=== PATIENT | male | born 1980 | race Caucasian/White ===

== ENCOUNTER 2017-12-16 05:30 | Emergency (ER) | END 2017-12-16 08:28 | disposition home or self-care (01) ==

== ENCOUNTER 2018-05-09 13:16 | Inpatient (IN) | payer OTHER ==
[~2018-05-09] VITALS: Ht 172.7 cm; Wt 79.5 kg
[~2018-05-09 13:16] MED LIST: FLUO40CA10 PO
[2018-05-09 17:29] VITALS: BP 133/86; PULSE 77; RESP 18
[2018-05-09 17:57] VITALS: Ht 172.7 cm; Wt 79.5 kg
[2018-05-09] MEDS ORDERED: ONDANSETRON 4 MG INJ IV PRN (18:30)
[2018-05-09] MEDS ORDERED: morphine SULFATE/PF (2 MG/2 ML) SYG IV PRN (18:30)
[2018-05-09] MEDS ORDERED: DOCUSATE SODIUM 100 MG CAP PO PRN (18:30)
[2018-05-09] MEDS ORDERED: ZOLPIDEM 5 MG TAB PO PRN (18:30)
[2018-05-09] MEDS ORDERED: MAGNESIUM HYDROXIDE 30ML CUP PO PRN (18:30)
[2018-05-09] MEDS ORDERED: ACETAMINOPHEN 325 MG TAB PO PRN (18:30)
[2018-05-09] MEDS ORDERED: NACL 0.9% 3 ML SYG IV SCH (18:30)
[2018-05-09] MEDS: HYDROCODONE/APAP (5/325) TAB PO PRN (18:40)
[2018-05-09] MEDS: AMPICILLIN/SULB 3 GM/NS (PMX) 100 ML IVPB SCH (19:33)
[2018-05-09 20:13] VITALS: BP 127/79; PULSE 82; RESP 18
[2018-05-09] MEDS: morphine 4 MG/ML VIAL IV PRN (21:20)
[2018-05-10] MEDS: AMPICILLIN/SULB 3 GM/NS (PMX) 100 ML IVPB SCH ×5 (00:46→23:43)
[2018-05-10] MEDS: HYDROCODONE/APAP (5/325) TAB PO PRN ×3 (00:46→14:49)
[2018-05-10] MEDS: morphine 4 MG/ML VIAL IV PRN ×3 (02:19→20:48)
[2018-05-10 02:46] VITALS: BP 144/93; PULSE 67; RESP 18
[2018-05-10 07:00] VITALS: BP 136/86; PULSE 57; RESP 18
--- NOTE | 2018-05-10 08:46 | HP ---
Date/Time of Note Date/Time of Note DATE: 05/09/18 TIME: 23:00 Assessment/Plan VTE Prophylaxis Risk score (from Nsg)>0 risk: 0 SCD applied (from Nsg): Yes Pharmacological prophylaxis: LMWH Lines/Catheters IV Catheter Type (from Nrsg): Saline Lock Assessment/Plan Assessment/Plan 1. Right facial/mandibular abscess: Secondary to tooth infection -IV antibiotic -Pain management 2. Depression: Continue Prozac Result Diagram: 05/10/1842205/10/18 0423 Results 24hrs Laboratory Tests Test 05/10/18 04:23 White Blood Count 8.0 Red Blood Count 3.91 L Hemoglobin 12.0 L Hematocrit 35.7 L Mean Corpuscular Volume 91.3 Mean Corpuscular Hemoglobin 30.7 Mean Corpuscular Hemoglobin Concent 33.6 Red Cell Distribution Width 13.2 Platelet Count 156 Mean Platelet Volume 10.7 H Immature Granulocytes % 0.300 Neutrophils % 57.0 Lymphocytes % 30.9 Monocytes % 9.9 Eosinophils % 1.5 Basophils % 0.4 Nucleated Red Blood Cells % 0.0 Immature Granulocytes # 0.020 Neutrophils # 4.6 Lymphocytes # 2.5 Monocytes # 0.8 Eosinophils # 0.1 Basophils # 0.0 Nucleated Red Blood Cells # 0.0 Sodium Level 138 Potassium Level 4.2 Chloride Level 103 Carbon Dioxide Level 28 Anion Gap 7 Blood Urea Nitrogen 15 Creatinine 0.60 L Est Glomerular Filtrat Rate mL/min > 60 Glucose Level 91 Hemoglobin A1c 4.8 Calcium Level 8.9 Phosphorus Level 3.9 Magnesium Level 1.9 Total Bilirubin 0.2 Direct Bilirubin 0.00 Indirect Bilirubin 0.2 Aspartate Amino Transf (AST/SGOT) 21 Alanine Aminotransferase (ALT/SGPT) 22 Alkaline Phosphatase 43 Total Protein 6.5 Albumin 3.6 Globulin 2.90 Albumin/Globulin Ratio 1.24 HPI/ROS Admit Date/Time Admit Date/Time May 09, 2018 at 17:10 Hx of Present Illness This is a 38-year-old male with a history of depression who initially presented on outside hospital complaining of right facial swelling and pain. He said for the past few days has been dealing with toothache and infection which she was self treating with superglue and baking soda. When symptoms worsens and noticed swelling he went to the hospital. Soft tissue ultrasound of the neck/head shows marked subcutaneous edema overlying the right mandible with an associated a small 10 mm fluid collection, which could reflect confluent edema or a small abscess. Cortically thickened right submandibular lymph nodes, likely reactive. Patient was transferred to [facility] for insurance reasons. PMH/Family/Social Past Medical History Medical History: other (See HPI) Medications Current Medications IV Flush (NS 3 ml) 3 ml PER PROTOCOL IV ; Start 05/09/18 at 18:30 Ondansetron HCl (Zofran Inj) 4 mg Q6H PRN IV NAUSEA AND/OR VOMITING; Start 05/09/18 at 18:30 Acetaminophen (Tylenol Tab) 650 mg Q6H PRN PO PAIN LEVEL 1-3 OR FEVER; Start 05/09/18 at 18:30 Acetaminophen/ Hydrocodone Bitart ([place] (5/325)) 1 tab Q6H PRN PO MODERATE PAIN LEVEL 4-6 Last administered on 05/10/18at 06:14; Admin Dose 1 TAB; Start 05/09/18 at 18:30 Docusate Sodium (Colace) 100 mg Q12H PRN PO CONSTIPATION; Start 05/09/18 at 18:30 Magnesium Hydroxide (Milk Of Mag) 30 ml DAILY PRN PO CONSTIPATION; Start 05/09/18 at 18:30 Zolpidem Tartrate (Ambien) 5 mg QHS PRN PO SLEEP; Start 05/09/18 at 18:30 Enoxaparin Sodium (Lovenox) 40 mg DAILY SC ; Start 05/10/18 at 09:00 Ampicillin Sodium/ Sulbactam Sodium 100 ml @ 100 mls/hr Q6 IVPB Last administered on 05/10/18at 06:09; Admin Dose 100 MLS/HR; Start 05/09/18 at 18:30 Fluoxetine HCl (Prozac) 40 mg DAILY PO ; Start 05/10/18 at 09:00 Morphine Sulfate (morphine) 2 mg Q4H PRN IV SEVERE PAIN LEVEL 7-10 Last admin istered on 05/10/18at 02:19; Admin Dose 2 MG; Start 05/09/18 at 21:00 Coded Allergies: No Known Allergy (Unverified , 12/16/17) Past Surgical History Past Surgical Hx: other (See HPI) Family History Significant Family History: no pertinent family hx Social History Alcohol Use: none Smoking Status: Current every day smoker Drug Use: none Exam/Review of Systems Vital Signs Vitals Vital Signs Date Temp Pulse Resp B/P (MAP) Pulse Ox O2 O2 Flow FiO2 Time Delivery Rate 05/10/18 98.6 57 18 136/86 95 Room Air 07:00 (103) Intake and Output 05/09/18 05/09/18 05/10/18 1414:59 22:59 06:59 IntakeIntake Total 600 ml 100 ml OutputOutput Total 850 ml BalanceBalance -250 ml 100 ml Exam Constitutional: alert, oriented, well developed Head: normocephalic, atraumatic Eyes: EOMI, PERRL Respiratory: clear to auscultation, normal air movement Cardiovascular: regular rate and rhythm, nl pulses Gastrointestinal: soft, non-tender Extremities: normal pulses SENA JETER MD May 10, 2018 08:46
[2018-05-10] MEDS: FLUOXETINE 20 MG CAP PO SCH (08:58)
[2018-05-10] MEDS: ENOXAPARIN 40 MG/0.4 ML SYG SC SCH (09:02)
[2018-05-10 14:57] VITALS: BP 156/94; PULSE 78; RESP 16
--- NOTE | 2018-05-10 15:45 | PN ---
Date/Time of Note Date/Time of Note DATE: 05/10/18 TIME: 15:42 Assessment/Plan VTE Prophylaxis Risk score (from Nsg)>0 risk: 0 SCD applied (from Ns): No SCD contraindicated: other Pharmacological prophylaxis: LMWH Lines/Catheters IV Catheter Type (from Nrs): Saline Lock Assessment/Plan Hospital Course S: Patient able to take p.o. meds, still complaining of some tooth pain, no fevers overnight. O: VS - see below PE: Constitutional: alert, oriented, well developed Head: normocephalic, atraumatic, still some swelling noted in the right jaw area, appears to be less than before Eyes: EOMI, PERRL Respiratory: clear to auscultation, normal air movement Cardiovascular: regular rate and rhythm, nl pulses Gastrointestinal: soft, non-tender Extremities: No lower extremity edema bilaterally Assessment/Plan: 38-year-old male who presents with: 1. Right facial/mandibular abscess: Secondary to tooth infection. Appears to be slowly improving as he does have less swelling in the facial area. No fevers, white blood cell count presently normal. -For now continue Unasyn IV antibiotic -Continue pain management 2. Depression: Continue Prozac 3. Homelessness: We will get social sciences department chair consult to further investigate, as well as hopefully provide patient with resources for a dentist Result Diagram: 05/10/183 05/10/18 0423 Results 24hrs Laboratory Tests Test 05/10/18 04:23 White Blood Count 8.0 Red Blood Count 3.91 L Hemoglobin 12.0 L Hematocrit 35.7 L Mean Corpuscular Volume 91.3 Mean Corpuscular Hemoglobin 30.7 Mean Corpuscular Hemoglobin Concent 33.6 Red Cell Distribution Width 13.2 Platelet Count 156 Mean Platelet Volume 10.7 H Immature Granulocytes % 0.300 Neutrophils % 57.0 Lymphocytes % 30.9 Monocytes % 9.9 Eosinophils % 1.5 Basophils % 0.4 Nucleated Red Blood Cells % 0.0 Immature Granulocytes # 0.020 Neutrophils # 4.6 Lymphocytes # 2.5 Monocytes # 0.8 Eosinophils # 0.1 Basophils # 0.0 Nucleated Red Blood Cells # 0.0 Sodium Level 138 Potassium Level 4.2 Chloride Level 103 Carbon Dioxide Level 28 Anion Gap 7 Blood Urea Nitrogen 15 Creatinine 0.60 L Est Glomerular Filtrat Rate mL/min > 60 Glucose Level 91 Hemoglobin A1c 4.8 Calcium Level 8.9 Phosphorus Level 3.9 Magnesium Level 1.9 Total Bilirubin 0.2 Direct Bilirubin 0.00 Indirect Bilirubin 0.2 Aspartate Amino Transf (AST/SGOT) 21 Alanine Aminotransferase (ALT/SGPT) 22 Alkaline Phosphatase 43 Total Protein 6.5 Albumin 3.6 Globulin 2.90 Albumin/Globulin Ratio 1.24 Exam/Review of Systems Vital Signs Vitals Vital Signs Date Temp Pulse Resp B/P (MAP) Pulse Ox O2 O2 Flow FiO2 Time Delivery Rate 05/10/18 98.7 78 16 156/94 98 Room Air 14:57 (114) Intake and Output 05/09/18 05/09/18 05/10/18 1414:59 22:59 06:59 IntakeIntake Total 600 ml 100 ml OutputOutput Total 850 ml BalanceBalance -250 ml 100 ml Medications Medications Current Medications IV Flush (NS 3 ml) 3 ml PER PROTOCOL IV ; Start 05/09/18 at 18:30 Ondansetron HCl (Zofran Inj) 4 mg Q6H PRN IV NAUSEA AND/OR VOMITING; Start 05/09/18 at 18:30 Acetaminophen (Tylenol Tab) 650 mg Q6H PRN PO PAIN LEVEL 1-3 OR FEVER; Start 05/09/18 at 18:30 Docusate Sodium (Colace) 100 mg Q12H PRN PO CONSTIPATION; Start 05/09/18 at 18:30 Magnesium Hydroxide (Milk Of Mag) 30 ml DAILY PRN PO CONSTIPATION; Start 05/09/18 at 18:30 Zolpidem Tartrate (Ambien) 5 mg QHS PRN PO SLEEP; Start 05/09/18 at 18:30 Enoxaparin Sodium (Lovenox) 40 mg DAILY SC Last administered on 05/10/18at 09 :02; Admin Dose 40 MG; Start 05/10/18 at 09:00 Ampicillin Sodium/ Sulbactam Sodium 100 ml @ 100 mls/hr Q6 IVPB Last administered on 05/10/18at 11:57; Admin Dose 100 MLS/HR; Start 05/09/18 at 18:30 Fluoxetine HCl (Prozac) 40 mg DAILY PO Last administered on 05/10/18at 08:58; Admin Dose 40 MG; Start 05/10/18 at 09:00 Morphine Sulfate (morphine) 2 mg Q4H PRN IV SEVERE PAIN LEVEL 7-10 Last administered on 05/10/18at 09:00; Admin Dose 2 MG; Start 05/09/18 at 21:00 Acetaminophen/ Hydrocodone Bitart ([place] ()) 1 tab Q6H PRN PO MODERATE PAIN LEVEL 4-6; Start 05/10/18 at 16:00 BARBARA BAUM May 10, 2018 15:45
[2018-05-10] MEDS ORDERED: METHYLPREDNISOLONE 40 MG INJ IV ONE (16:00)
[2018-05-10] MEDS ORDERED: hydrALAzine 20 MG INJ IV PRN (16:00)
[2018-05-10] MEDS ORDERED: HYDROCODONE/APAP (5/325) TAB PO ONE (16:00)
[2018-05-10 19:35] VITALS: BP 143/92; PULSE 68; RESP 18
[2018-05-10] MEDS: HYDROCODONE/APAP (10/325) TAB PO PRN (22:01)
[2018-05-11] MEDS: morphine 4 MG/ML VIAL IV PRN ×3 (01:07→10:10)
[2018-05-11 02:00] VITALS: BP 129/75; PULSE 69; RESP 18
[2018-05-11] MEDS: AMPICILLIN/SULB 3 GM/NS (PMX) 100 ML IVPB SCH ×2 (05:49→11:34)
[2018-05-11] MEDS: HYDROCODONE/APAP (10/325) TAB PO PRN (06:55)
[2018-05-11 08:31] VITALS: BP 138/88; PULSE 70; RESP 20
[2018-05-11] MEDS: FLUOXETINE 20 MG CAP PO SCH (09:11)
[2018-05-11] MEDS: ENOXAPARIN 40 MG/0.4 ML SYG SC SCH (09:13)
--- NOTE | 2018-05-11 12:35 | PDOCDIS ---
Discharge Instructions CONDITION [id number] Patient Condition: [id number] Stable HOME CARE INSTRUCTIONS: [id number] Diet Instructions: [id number] Low Fat /Cholesterol ACTIVITY: [id number] Activity Restrictions: [id number] Slowly Increase Activity Rest between Activity Avoid heavy lifting FOLLOW UP/APPOINTMENTS Follow-up Plan Please take your medication as prescribed, see your doctor in clinic in the next 1 week. BARBARA BAUM May 11, 2018 12:35
[2018-05-11] MEDS ORDERED: SULF1TAB31 PO (12:36)
--- NOTE | 2018-05-11 12:41 | DS ---
Date/Time of Note Date/Time of Note DATE: 05/11/18 TIME: 12:37 Discharge Summary Admission/Discharge Info Admit Date/Time May 09, 2018 at 17:10 Discharge Date/Time Discharge Diagnosis 1. Right facial/mandibular abscess: Secondary to tooth infection. Appears to be slowly improving. 2. Depression: Continue Prozac 3. Homelessness-order placed for social media manager evaluation Patient Condition: Stable Hx of Present Illness 38-year-old male with a history of depression who initially presented on outside hospital complaining of right facial swelling and pain. He said for the past few days has been dealing with toothache and infection which he was self treating with superglue and baking soda. When symptoms worsens and noticed swelling he went to the hospital. Soft tissue ultrasound of the neck/head shows marked subcutaneous edema overlying the right mandible with an associated a small 10 mm fluid collection, which could reflect confluent edema or a small abscess. Cortically thickened right submandibular lymph nodes, likely reactive. Patient was transferred to [facility] for insurance reasons. Hospital Course The patient was admitted to medical surgical unit. He was placed on pain control medications and IV antibiotics. Over the course of his hospital stay his swelling symptoms improved, white blood cell count remained stable, no fevers were noted. He was able to ambulate, tolerated p.o. diet. He was also able to take p.o. medications and tolerate p.o. diet. He had stable vital signs. Because the patient is clinically improved, he will be discharged home today improved condition with 7 more days of p.o. antibiotics. See below for full list of discharge medications. He is strongly recommended to follow-up with a dentist as an outpatient for further evaluation and treatment of his infected tooth. Home Meds Active Scripts Sulfamethoxazole/Trimethoprim* (Bactrim Ds* Tablet) 1 Each Tablet, 1 TAB PO BID for 7 Days, #14 TAB Prov:MAREK BAUMP RobertHumberto 05/11/18 Reported Medications Fluoxetine Hcl* (Prozac*) 40 Mg Capsule, 40 MG PO DAILY, CAP 12/16/17 Follow-up Plan Please take your medication as prescribed, see your doctor in clinic in the next 1 week. Primary Care Provider Not On Staff Doctor Time spent on discharge: > 30 minutes Pending Labs Laboratory Tests Test 05/11/18 04:27 White Blood Count 9.6 10^3/ul (4.8-10.8) Red Blood Count 4.62 10^6/ul (4.70-6.10) Hemoglobin 13.9 g/dl (14.0-18.0) Hematocrit 40.5 % (42.0-52.0) Mean Corpuscular Volume 87.7 fl (82.0-101.0) Mean Corpuscular Hemoglobin 30.1 pg (29.0-33.0) Mean Corpuscular Hemoglobin Concent 34.3 g/dl (32.0-37.0) Red Cell Distribution Width 12.5 % (11.5-14.5) Platelet Count 211 10^3/UL (140-415) Mean Platelet Volume 10.9 fl (7.4-10.4) Immature Granulocytes % 0.400 % (0.001-0.429) Neutrophils % 85.4 % (39.0-77.0) Lymphocytes % 11.5 % (15.0-51.0) Monocytes % 2.6 % (0.0-11.0) Eosinophils % 0.0 % (0.0-7.0) Basophils % 0.1 % (0.0-2.0) Nucleated Red Blood Cells % 0.0 /100WBC (0.0-0.0) Immature Granulocytes # 0.040 10^3/ul (0.0-0.031) Neutrophils # 8.2 10^3/ul (1.6-7.5) Lymphocytes # 1.1 10^3/ul (0.8-2.9) Monocytes # 0.3 10^3/ul (0.3-0.9) Eosinophils # 0.0 10^3/ul (0.0-0.5) Basophils # 0.0 10^3/ul (0.0-0.1) Nucleated Red Blood Cells # 0.0 10^3/ul (0.0-0.0) Sodium Level 140 mmol/L (135-144) Potassium Level 4.3 mmol/L (3.5-5.1) Chloride Level 106 mmol/L (97-110) Carbon Dioxide Level 25 mmol/L (21-31) Anion Gap 9 (5-13) Blood Urea Nitrogen 8 mg/dl (7-20) Creatinine 0.48 mg/dl (0.61-1.24) Est Glomerular Filtrat Rate mL/min > 60 mL/min (>60) Glucose Level 125 mg/dl (70-220) Calcium Level 9.8 mg/dl (8.4-10.2) Phosphorus Level 2.3 mg/dl (2.5-4.9) Magnesium Level 1.9 mg/dl (1.7-2.5) BARBARA BAUM May 11, 2018 12:41
[2018-05-11] MEDS ORDERED: POTASSIUM PHOSPHATE 20 MEQ in SOD CHLORIDE 0.9% 250 ML IVPB ONE (14:00)
== END 2018-05-11 13:10 | disposition home or self-care (01) | DRG 159 ==
LOC: MS1 17:10
PROVIDERS: ADMIT Internal Medicine; ATTEND Hospitalist
DX: M27.2 Inflammatory conditions of jaws (principal); K04.7 Periapical abscess without sinus; F32.9 Major depressive disorder, single episode, unspecified; F17.200 Nicotine dependence, unspecified, uncomplicated; Z59.0 Homelessness
CPT/HCPCS: 80048; 80053; 83036; 83735; 84100; 85025; J0295; J1650; J2270; J2920; J7050